=== PATIENT | male | born 1990 | race Caucasian/White ===

== ENCOUNTER 2019-01-28 20:20 | Emergency (ER) | payer BC, OTHER ==
[2019-01-28 21:21] VITALS: BP 141/86
[2019-01-28] MEDS ORDERED: Azithromycin TAB* 250 MG PO ONE (21:33)
--- NOTE | 2019-02-11 19:00 | UC ---
Respiratory Complaint HPI - HPI Summary HPI Summary: Worsening cough over the past week, occasionally productive if he coughs hard enough. - History of Current Complaint Chief Complaint: UCRespiratory Stated Complaint: COUGH,ST Time Seen by Provider: 01/28/19 21:27 Hx Obtained From: Patient Onset/Duration: Gradual Onset Severity Initially: Mild Severity Currently: Moderate Pain Intensity: 0 Pain Scale Used: 0-10 Numeric Character: Cough: Nonproductive - Occasionally productive if he coughs hard enough Alleviating Factors: Nothing Associated Signs And Symptoms: Positive: URI, Nasal Congestion - Allergies/Home Medications Allergies/Adverse Reactions: Allergies Allergy/AdvReac Type Severity Reaction Status Date / Time No Known Allergies Allergy Verified 01/28/19 21:21 PMH/Surg Hx/FS Hx/Imm Hx Previously Healthy: Yes - Surgical History Surgical History: None - Family History Known Family History: Positive: Non-Contributory - Social History Alcohol Use: Rare Substance Use Type: None Smoking Status (MU): Never Smoked Tobacco Review of Systems All Other Systems Reviewed And Are Negative: Yes Respiratory: Positive: Cough - Productive at times Is Patient Immunocompromised?: No Physical Exam Triage Information Reviewed: Yes Appearance: Well-Appearing, No Pain Distress, Well-Nourished Vital Signs: Initial Vital Signs Temp 97.9 F 01/28/19 21:17 Pulse 84 01/28/19 21:17 Resp 17 01/28/19 21:17 BP 141/86 01/28/19 21:17 Pulse Ox 100 01/28/19 21:17 Vital Signs Reviewed: Yes Eye Exam: Normal ENT: Positive: Pharynx normal, TMs normal, Uvula midline Neck: Positive: Supple, Nontender, No Lymphadenopathy Respiratory: Positive: No respiratory distress, No accessory muscle use, Rhonchi - Mild rhonchi which does not clear with coughing lower lobes, minimal expiratory wheeze present with forced expiration. Cardiovascular: Positive: RRR, No Murmur, Pulses Normal, Brisk Capillary Refill Musculoskeletal Exam: Normal Neurological Exam: Normal Psychological Exam: Normal Skin Exam: Normal Respiratory Course/Dx - Course Course Of Treatment: Comfortable here. Pt's cough seems to be progressively worsening over the past week. - Differential Dx/Diagnosis Provider Diagnosis: Bronchitis Discharge - Sign-Out/Discharge Documenting (check all that apply): Patient Departure All imaging exams completed and their final reports reviewed: No Studies - Discharge Plan Condition: Fair Disposition: HOME Prescriptions: Azithromycin TAB* [Zithromax TAB (Z-ELOISE) 250 mg #6 tabs] 250 mg PO DAILY 4 Days #4 tab Patient Education Materials: Acute Bronchitis (ED) Referrals: [facility] [Outside] No Primary Care Phys,NOPCP [Primary Care Provider] - Additional Instructions: Increase fluids, follow-up with the [facility] if no improvement in 3 or 4 days. - Billing Disposition and Condition Condition: FAIR Disposition: Home - Attestation Statements Provider Attestation: Per institutional requirements, I have reviewed the chart, however, I was not consulted specifically or made aware of this patient by the midlevel provider. I did not personally evaluate, interact with , or disposition this patient.
== END 2019-01-28 21:39 | disposition home or self-care (01) ==
LOC: UCCORT 20:20
DX: J40 Bronchitis, not specified as acute or chronic (principal)
CPT/HCPCS: 99202; A9270-GY; G0463